=== PATIENT | male | born 1965 | race Caucasian/White ===

== ENCOUNTER 2016-08-13 21:13 | Emergency (ER) | payer MEDICARE, MEDICAID ==
[2016-08-13 22:10] VITALS: BP 116/78
== END 2016-08-14 06:15 | disposition left against medical advice (07) ==
LOC: ER 21:13
DX: Z53.21 Procedure and treatment not carried out due to patient leaving prior to being seen by health care provider (principal)

== ENCOUNTER 2016-08-30 22:37 | Emergency (ER) | payer MEDICARE, MEDICAID ==
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
[2016-08-31 05:40] VITALS: BP 120/86
== END 2016-08-31 05:25 | disposition home or self-care (01) ==
LOC: ER 22:37
DX: S09.90XA Unspecified injury of head, initial encounter (principal); S16.1XXA Strain of muscle, fascia and tendon at neck level, initial encounter; R51 Headache; M54.2 Cervicalgia; Y04.8XXA Assault by other bodily force, initial encounter; F10.10 Alcohol abuse, uncomplicated
CPT/HCPCS: 99284; 71101; 70450; 72125; L0120

== ENCOUNTER 2016-10-04 22:53 | Emergency (ER) | payer MEDICARE, MEDICAID | END 2016-10-04 23:30 | disposition left against medical advice (07) | LOC: ER 22:53 | DX: Z53.21 Procedure and treatment not carried out due to patient leaving prior to being seen by health care provider (principal) ==

== ENCOUNTER → 2016-10-22 | Outpatient (CLI) | payer MEDICARE, MEDICAID ==
[2016-10-22 14:31] LABS: ABSOLUTE BASOPHILS # (AUTO) 0.1 10^3/uL (0.0-0.2); ABSOLUTE EOSINOPHILS # (AUTO) 0.1 10^3/uL (0.0-0.6); ABSOLUTE LYMPHOCYTES (AUTO) 1.9 10^3/uL (0.5-4.7); ABSOLUTE MONOCYTES (AUTO) 1.3 10^3/uL (0.1-1.4); ABSOLUTE NEUT (AUTO) 7.6 10^3/uL (1.7-8.2); BASOPHILS % (AUTO) 0.7 % (0-2); EOSINOPHILS % (AUTO) 0.9 % (0-6); HEMATOCRIT 49.6 % (37.9-51.0); HEMOGLOBIN 16.4 g/dL (13.5-17.0); HGB HCT DIFFERENCE -0.4; LYMPHOCYTES % (AUTO) 17.1 % (13-45); MEAN CORPUSCULAR HEMOGLOBIN 30.9 pg (27.0-33.4); MEAN CORPUSCULAR HGB CONC 33.1 g/dL (32.0-36.0); MEAN CORPUSCULAR VOLUME 93 fl (80-97); MONOCYTES % (AUTO) 12.2 % (3-13); RED BLOOD COUNT 5.31 10^6/uL (4.35-5.55); RED CELL DISTRIBUTION WIDTH 13.3 % (11.5-14.0); SEGMENTED NEUTROPHILS % (AUTO) 69.1 % (42-78)
[2016-10-22 14:48] LABS: APPEARANCE,URINE SLIGHTLY-CLOUDY; BILIRUBIN,URINE SMALL (NEGATIVE); GLUCOSE, URINE NEGATIVE (NEGATIVE); KETONES,URINE 20 mg/dL (NEGATIVE); LEUKOCYTE ESTERASE,URINE NEGATIVE (NEGATIVE); NITRITE,URINE NEGATIVE (NEGATIVE); PROTEIN,URINE 30 mg/dL (NEGATIVE); URINE SPECIFIC GRAVITY 1.033
[2016-10-22 14:53] LABS: ALANINE AMINOTRANSFERASE 32 U/L (21-72); ALBUMIN 4.7 g/dL (3.5-5.0); ALKALINE PHOSPHATASE 87 U/L (38-126); AMYLASE 83 U/L (30-110); ANION GAP 13 (5-19); ASPARTATE AMINO TRANSFERASE 30 U/L (17-59); BILIRUBIN,DIRECT 0.4 mg/dL (0.0-0.4); BILIRUBIN,TOTAL 1.5 mg/dL (0.2-1.3); BLOOD UREA NITROGEN 23 mg/dL (7-20); CALCIUM 10.2 mg/dL (8.4-10.2); CARBON DIOXIDE 26 mmol/L (22-30); CHLORIDE 107 mmol/L (98-107); CHOLESTEROL 196.49 mg/dL (0-200); Direct HDL 103 mg/dL (>40); GLUCOSE 80 mg/dL (75-110); LIPASE 102.6 U/L (23-300); POTASSIUM 4.5 mmol/L (3.6-5.0); SODIUM 145.8 mmol/L (137-145); TRIGLYCERIDES 116 mg/dL (<150)
[2016-10-22 15:03] LABS: DIRECT LDL 49 mg/dL (<100)
== END ==
LOC: OD 13:13
PROVIDERS: ATTEND Internal Medicine
DX: E78.2 Mixed hyperlipidemia (principal); Z12.5 Encounter for screening for malignant neoplasm of prostate; R79.89 Other specified abnormal findings of blood chemistry; Z13.1 Encounter for screening for diabetes mellitus; R10.10 Upper abdominal pain, unspecified; Z13.29 Encounter for screening for other suspected endocrine disorder; Z79.899 Other long term (current) drug therapy
CPT/HCPCS: 36415; 82150; 83690; 84443; 85025; 80053; 81001; 80061; G0103

== ENCOUNTER → 2016-10-24 | Outpatient (CLI) | payer MEDICARE, MEDICAID ==
--- NOTE | 2016-10-24 12:32 | RADIOLOGY REPORT (SQ) ---
EXAM DESCRIPTION: U/S ABDOMEN COMPLETE W/O DOP COMPLETED DATE/TIME: 10/24/2016 10:36 am REASON FOR STUDY: UPPER ABDOMINAL PAIN R10.10 UPPER ABDOMINAL PAIN, UNSPECIFIED R10.0 ACUTE ABDOME N COMPARISON: None TECHNIQUE: Dynamic and static grayscale images acquired of the abdomen and recorded on PACS. Additio nal selected color Doppler and spectral images recorded. LIMITATIONS: Study limited due to acoustical interference from fat or from air in the bowel. FINDINGS: PANCREAS: Poorly seen secondary to acoustical interference from fat or from air in the bow el. No visualized masses. Duct normal caliber as seen. LIVER: No masses. No dilated ducts. LIVER VASCULATURE: Normal directional flow of the main portal vein and hepatic veins. GALLBLADDER: No stones. Normal wall thickness. No pericholecystic fluid. ULTRASOUND-DETECTED HIGUERA'S SIGN: Negative. INTRAHEPATIC DUCTS AND COMMON DUCT:CBD and intrahepatic ducts normal caliber. No filling defects. INFERIOR VENA CAVA: Normal flow. AORTA: No aneurysm. RIGHT KIDNEY: Normal size. Normal echogenicity. No solid or suspicious masses. No hydronephrosis. No calcifications. LEFT KIDNEY: Normal size. Normal echogenicity. No solid or suspicious masses. No hydronephrosis. No calcifications. SPLEEN:Normal size. No solid masses. PERITONEAL AND PLEURAL SPACES: No ascites or effusions. OTHER: No other significant finding. IMPRESSION: NO SIGNIFICANT FINDING IN THE VISUALIZED ABDOMEN. TECHNICAL DOCUMENTATION: JOB ID: [id number] [employer]- All Rights Reserved
== END ==
LOC: RAD 09:31
PROVIDERS: ATTEND Internal Medicine
DX: R10.10 Upper abdominal pain, unspecified (principal)
CPT/HCPCS: 76700

== ENCOUNTER 2016-12-11 02:06 | Emergency (ER) | payer MEDICARE, MEDICAID ==
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
[2016-12-11 07:56] VITALS: BP 110/78
== END 2016-12-11 07:45 | disposition home or self-care (01) ==
LOC: ER 02:06
DX: F10.229 Alcohol dependence with intoxication, unspecified (principal); E16.2 Hypoglycemia, unspecified; F17.200 Nicotine dependence, unspecified, uncomplicated; J44.9 Chronic obstructive pulmonary disease, unspecified; Z88.8 Allergy status to other drugs, medicaments and biological substances; Z88.0 Allergy status to penicillin
CPT/HCPCS: 82962; 99284

== ENCOUNTER 2016-12-18 19:33 | Emergency (ER) | payer MEDICARE, OTHER, MEDICAID ==
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
[2016-12-18 21:07] LABS: APPEARANCE,URINE CLEAR; BILIRUBIN,URINE NEGATIVE (NEGATIVE); GLUCOSE, URINE NEGATIVE (NEGATIVE); KETONES,URINE NEGATIVE (NEGATIVE); LEUKOCYTE ESTERASE,URINE NEGATIVE (NEGATIVE); NITRITE,URINE NEGATIVE (NEGATIVE); PROTEIN,URINE NEGATIVE (NEGATIVE); URINE SPECIFIC GRAVITY 1.008
[2016-12-18 21:17] LABS: ALANINE AMINOTRANSFERASE 37 U/L (21-72); ALBUMIN 5.1 g/dL (3.5-5.0); ALCOHOL 14 mg/dL (NONE DETECTED); ALKALINE PHOSPHATASE 89 U/L (38-126); ANION GAP 13 (5-19); ASPARTATE AMINO TRANSFERASE 44 U/L (17-59); BILIRUBIN,DIRECT 0.4 mg/dL (0.0-0.4); BLOOD UREA NITROGEN 12 mg/dL (7-20); CALCIUM 9.7 mg/dL (8.4-10.2); CARBON DIOXIDE 24 mmol/L (22-30); CHLORIDE 103 mmol/L (98-107); CREATININE RESULT 0.87 mg/dL (0.52-1.25); GLUCOSE 83 mg/dL (75-110); POTASSIUM 4.8 mmol/L (3.6-5.0); SODIUM 140.4 mmol/L (137-145); TOTAL PROTEIN 8.4 g/dL (6.3-8.2)
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
[2016-12-18 21:24] LABS: URINE BARBITURATES SCREEN NEGATIVE; URINE METHADONE SCREEN NEGATIVE; URINE OPIATES LOW NEGATIVE; URINE PHENCYCLIDINE SCREEN NEGATIVE
[2016-12-18 22:06] LABS: ABSOLUTE BASOPHILS # (AUTO) 0.1 10^3/uL (0.0-0.2); ABSOLUTE EOSINOPHILS # (AUTO) 0.1 10^3/uL (0.0-0.6); ABSOLUTE LYMPHOCYTES (AUTO) 1.9 10^3/uL (0.5-4.7); ABSOLUTE MONOCYTES (AUTO) 1.2 10^3/uL (0.1-1.4); ABSOLUTE NEUT (AUTO) 4.7 10^3/uL (1.7-8.2); EOSINOPHILS % (AUTO) 1.3 % (0-6); HEMATOCRIT 43.3 % (37.9-51.0); HEMOGLOBIN 14.6 g/dL (13.5-17.0); HGB HCT DIFFERENCE 0.5; LYMPHOCYTES % (AUTO) 23.9 % (13-45); MEAN CORPUSCULAR HEMOGLOBIN 31.3 pg (27.0-33.4); MEAN CORPUSCULAR HGB CONC 33.8 g/dL (32.0-36.0); MEAN CORPUSCULAR VOLUME 93 fl (80-97); MONOCYTES % (AUTO) 14.5 % (3-13); RED BLOOD COUNT 4.68 10^6/uL (4.35-5.55); RED CELL DISTRIBUTION WIDTH 13.3 % (11.5-14.0); SEGMENTED NEUTROPHILS % (AUTO) 59.3 % (42-78)
[2016-12-18] MEDS ORDERED: LORAZEPAM 1 MG TABLET PO ONE (22:18)
[2016-12-18 22:33] VITALS: BP 143/89
--- NOTE | 2016-12-19 12:07 | EKG REPORT ---
SEVERITY:- NORMAL ECG - SINUS RHYTHM : Confirmed by: Mallorie Funez MD 19-Dec-2016 12:06:12
== END 2016-12-18 22:32 | disposition home or self-care (01) ==
LOC: ER 19:33
DX: F10.239 Alcohol dependence with withdrawal, unspecified (principal); R11.2 Nausea with vomiting, unspecified; F17.200 Nicotine dependence, unspecified, uncomplicated
CPT/HCPCS: 93005; 99285; 36415; 80307 ×4; 85025; 80053; 81001; 93010; A9270

== ENCOUNTER 2016-12-23 17:43 | Emergency (ER) | payer MEDICARE, MEDICAID ==
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
[2016-12-23 18:38] LABS: ABSOLUTE BASOPHILS # (AUTO) 0.1 10^3/uL (0.0-0.2); ABSOLUTE EOSINOPHILS # (AUTO) 0.1 10^3/uL (0.0-0.6); ABSOLUTE LYMPHOCYTES (AUTO) 2.3 10^3/uL (0.5-4.7); ABSOLUTE MONOCYTES (AUTO) 1.3 10^3/uL (0.1-1.4); BASOPHILS % (AUTO) 1.2 % (0-2); EOSINOPHILS % (AUTO) 1.5 % (0-6); HEMATOCRIT 40.8 % (37.9-51.0); HEMOGLOBIN 14.1 g/dL (13.5-17.0); HGB HCT DIFFERENCE 1.5; LYMPHOCYTES % (AUTO) 23.6 % (13-45); MEAN CORPUSCULAR HEMOGLOBIN 31.5 pg (27.0-33.4); MEAN CORPUSCULAR HGB CONC 34.4 g/dL (32.0-36.0); MEAN CORPUSCULAR VOLUME 91 fl (80-97); MONOCYTES % (AUTO) 13.1 % (3-13); RED BLOOD COUNT 4.47 10^6/uL (4.35-5.55); SEGMENTED NEUTROPHILS % (AUTO) 60.6 % (42-78); WHITE BLOOD COUNT 9.9 10^3/uL (4.0-10.5)
[2016-12-23 18:56] LABS: ALANINE AMINOTRANSFERASE 36 U/L (21-72); ALBUMIN 4.1 g/dL (3.5-5.0); ALCOHOL 118 mg/dL (NONE DETECTED); ALKALINE PHOSPHATASE 80 U/L (38-126); ANION GAP 13 (5-19); ASPARTATE AMINO TRANSFERASE 33 U/L (17-59); BILIRUBIN,DIRECT 0.3 mg/dL (0.0-0.4); BILIRUBIN,TOTAL 0.5 mg/dL (0.2-1.3); BLOOD UREA NITROGEN 18 mg/dL (7-20); CALCIUM 9.2 mg/dL (8.4-10.2); CARBON DIOXIDE 23 mmol/L (22-30); CHLORIDE 104 mmol/L (98-107); CREATININE RESULT 0.76 mg/dL (0.52-1.25); GLUCOSE 79 mg/dL (75-110); LIPASE 122.5 U/L (23-300); POTASSIUM 4.4 mmol/L (3.6-5.0); SODIUM 140.1 mmol/L (137-145); TOTAL PROTEIN 6.9 g/dL (6.3-8.2)
[2016-12-23 19:03] LABS: APPEARANCE,URINE CLEAR; BILIRUBIN,URINE NEGATIVE (NEGATIVE); GLUCOSE, URINE NEGATIVE (NEGATIVE); KETONES,URINE NEGATIVE (NEGATIVE); LEUKOCYTE ESTERASE,URINE NEGATIVE (NEGATIVE); NITRITE,URINE NEGATIVE (NEGATIVE); PROTEIN,URINE NEGATIVE (NEGATIVE); URINE SPECIFIC GRAVITY 1.002; UROBILINOGEN,URINE NEGATIVE mg/dL (<2.0)
[2016-12-23 19:17] LABS: URINE BARBITURATES SCREEN NEGATIVE; URINE METHADONE SCREEN NEGATIVE; URINE OPIATES LOW NEGATIVE; URINE PHENCYCLIDINE SCREEN NEGATIVE
== END 2016-12-23 19:15 | disposition left against medical advice (07) ==
LOC: ER 17:43
DX: J44.9 Chronic obstructive pulmonary disease, unspecified (principal); R06.00 Dyspnea, unspecified; R10.13 Epigastric pain; F10.129 Alcohol abuse with intoxication, unspecified; Z88.8 Allergy status to other drugs, medicaments and biological substances; Z88.0 Allergy status to penicillin; Z53.20 Procedure and treatment not carried out because of patient's decision for unspecified reasons
CPT/HCPCS: 36415; 80053; 80307; 81001; 83690; 84484; 85025; 99281

== ENCOUNTER 2017-04-19 02:41 | Emergency (ER) | payer MEDICARE, MEDICAID ==
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
[2017-04-19 04:24] LABS: ABSOLUTE BASOPHILS # (AUTO) 0.1 10^3/uL (0.0-0.2); ABSOLUTE EOSINOPHILS # (AUTO) 0.2 10^3/uL (0.0-0.6); ABSOLUTE LYMPHOCYTES (AUTO) 1.7 10^3/uL (0.5-4.7); ABSOLUTE MONOCYTES (AUTO) 0.9 10^3/uL (0.1-1.4); ABSOLUTE NEUT (AUTO) 5.3 10^3/uL (1.7-8.2); HEMATOCRIT 44.6 % (37.9-51.0); HEMOGLOBIN 15.3 g/dL (13.5-17.0); HGB HCT DIFFERENCE 1.3; LYMPHOCYTES % (AUTO) 21.3 % (13-45); MEAN CORPUSCULAR HEMOGLOBIN 31.3 pg (27.0-33.4); MEAN CORPUSCULAR HGB CONC 34.3 g/dL (32.0-36.0); MEAN CORPUSCULAR VOLUME 92 fl (80-97); MONOCYTES % (AUTO) 11.3 % (3-13); RED BLOOD COUNT 4.87 10^6/uL (4.35-5.55); SEGMENTED NEUTROPHILS % (AUTO) 64.4 % (42-78); WHITE BLOOD COUNT 8.2 10^3/uL (4.0-10.5)
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
[2017-04-19 04:43] LABS: ALANINE AMINOTRANSFERASE 58 U/L (21-72); ALBUMIN 4.3 g/dL (3.5-5.0); ALKALINE PHOSPHATASE 89 U/L (38-126); ANION GAP 14 (5-19); ASPARTATE AMINO TRANSFERASE 55 U/L (17-59); BILIRUBIN,DIRECT 0.3 mg/dL (0.0-0.4); BILIRUBIN,TOTAL 0.7 mg/dL (0.2-1.3); BLOOD UREA NITROGEN 20 mg/dL (7-20); CALCIUM 9.1 mg/dL (8.4-10.2); CARBON DIOXIDE 26 mmol/L (22-30); CHLORIDE 106 mmol/L (98-107); CREATININE RESULT 0.95 mg/dL (0.52-1.25); GLUCOSE 84 mg/dL (75-110); POTASSIUM 4.9 mmol/L (3.6-5.0); SODIUM 145.8 mmol/L (137-145); TOTAL PROTEIN 6.8 g/dL (6.3-8.2)
--- NOTE | 2017-04-19 05:36 | RADIOLOGY REPORT (SQ) ---
EXAM DESCRIPTION: WRIST RIGHT 3 VIEWS COMPLETED DATE/TIME: 04/19/2017 5:25 am REASON FOR STUDY: right wrist swelling COMPARISON: None. NUMBER OF VIEWS: Three views. TECHNIQUE: AP, lateral, and oblique radiographic images acquired of the right wrist. LIMITATIONS: None. FINDINGS: MINERALIZATION: Normal. BONES: No acute fracture or dislocation. No worrisome bone lesions. Normal alignment. Mild deformi ty of the 5th metacarpus consistent with old injury. SOFT TISSUES: No soft tissue swelling. No foreign body. OTHER: No other significant finding. IMPRESSION: NO RADIOGRAPHIC EVIDENCE OF ACUTE INJURY. TECHNICAL DOCUMENTATION: JOB ID: [id number] [email or web address]- All Rights Reserved
--- NOTE | 2017-04-19 05:37 | RADIOLOGY REPORT (SQ) ---
EXAM DESCRIPTION: FOREARM RIGHT COMPLETED DATE/TIME: 04/19/2017 5:25 am REASON FOR STUDY: distal forearm swelling COMPARISON: 01/09/2013. NUMBER OF VIEWS: Two views. 3 images. TECHNIQUE: Two radiographic images acquired of the right forearm, including elbow and wrist in at le ast one projection. LIMITATIONS: None. FINDINGS: MINERALIZATION: Normal. BONES: No acute fracture. No worrisome bone lesions. SOFT TISSUES: Swelling. OTHER: No other significant finding. IMPRESSION: No acute bone or joint defect. Swelling. TECHNICAL DOCUMENTATION: JOB ID: [id number] [employer]- All Rights Reserved
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
[2017-04-19 07:56] VITALS: BP 136/95
== END 2017-04-19 07:55 | disposition home or self-care (01) ==
LOC: ER 02:41
DX: S02.2XXA Fracture of nasal bones, initial encounter for closed fracture (principal); S00.83XA Contusion of other part of head, initial encounter; I10 Essential (primary) hypertension; Y04.0XXA Assault by unarmed brawl or fight, initial encounter; Y92.007 Garden or yard of unspecified non-institutional (private) residence as the place of occurrence of the external cause; Z79.899 Other long term (current) drug therapy; F17.200 Nicotine dependence, unspecified, uncomplicated
CPT/HCPCS: 36415; 70486; 71260; 72125; 80053; 85025; 99285

== ENCOUNTER → 2017-11-04 | Outpatient (CLI) | payer MEDICARE, MEDICAID ==
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
== END ==
LOC: RAD 11:28
PROVIDERS: ATTEND Internal Medicine
DX: M54.40 Lumbago with sciatica, unspecified side (principal)
CPT/HCPCS: 72110

== ENCOUNTER → 2018-02-26 | Outpatient (CLI) | payer MEDICARE, MEDICAID ==
[2018-02-26 11:02] LABS: ABSOLUTE BASOPHILS # (AUTO) 0.1 10^3/uL (0.0-0.2); ABSOLUTE EOSINOPHILS # (AUTO) 0.1 10^3/uL (0.0-0.6); ABSOLUTE LYMPHOCYTES (AUTO) 1.6 10^3/uL (0.5-4.7); ABSOLUTE MONOCYTES (AUTO) 1.1 10^3/uL (0.1-1.4); ABSOLUTE NEUT (AUTO) 4.9 10^3/uL (1.7-8.2); BASOPHILS % (AUTO) 0.7 % (0-2); EOSINOPHILS % (AUTO) 1.6 % (0-6); HEMATOCRIT 46.1 % (37.9-51.0); HEMOGLOBIN 15.9 g/dL (13.5-17.0); LYMPHOCYTES % (AUTO) 20.8 % (13-45); MEAN CORPUSCULAR HEMOGLOBIN 31.8 pg (27.0-33.4); MEAN CORPUSCULAR HGB CONC 34.5 g/dL (32.0-36.0); MEAN CORPUSCULAR VOLUME 92 fl (80-97); MONOCYTES % (AUTO) 13.8 % (3-13); PLATELET COUNT 213 10^3/uL (150-450); RED CELL DISTRIBUTION WIDTH 13.5 % (11.5-14.0); SEGMENTED NEUTROPHILS % (AUTO) 63.1 % (42-78); TOTAL CELLS COUNTED % (AUTO) 100 %; WHITE BLOOD COUNT 7.7 10^3/uL (4.0-10.5)
[2018-02-26 11:17] LABS: CHOLESTEROL 160.12 mg/dL (0-200); TRIGLYCERIDES 106 mg/dL (<150)
[2018-02-26 11:21] LABS: ALANINE AMINOTRANSFERASE 41 U/L (21-72); ALKALINE PHOSPHATASE 70 U/L (38-126); ANION GAP 7 (5-19); ASPARTATE AMINO TRANSFERASE 33 U/L (17-59); BILIRUBIN,DIRECT 0.4 mg/dL (0.0-0.4); BILIRUBIN,TOTAL 1.4 mg/dL (0.2-1.3); BLOOD UREA NITROGEN 18 mg/dL (7-20); CALCIUM 9.6 mg/dL (8.4-10.2); CARBON DIOXIDE 31 mmol/L (22-30); CHLORIDE 102 mmol/L (98-107); GLUCOSE 97 mg/dL (75-110); POTASSIUM 5.5 mmol/L (3.6-5.0); SODIUM 139.6 mmol/L (137-145)
[2018-02-26 11:41] LABS: DIRECT LDL < 30 mg/dL (<100)
[2018-02-26 11:42] LABS: FREE T4 (FREE THYROXINE) 1.19 ng/dL (0.78-2.19)
[2018-02-26 11:56] LABS: THYROID STIMULATING HORMONE 1.81 uIU/mL (0.47-4.68)
[2018-02-28 06:57] LABS: PROSTATE SPECIFIC ANTIGEN 0.9 ng/mL (0.0-4.0); PSA % FREE 6.7 % (.); PSA FREE 0.06 ng/mL
== END ==
LOC: OD 10:02
PROVIDERS: ATTEND Internal Medicine
DX: E78.2 Mixed hyperlipidemia (principal); E66.3 Overweight; E55.9 Vitamin D deficiency, unspecified; Z13.29 Encounter for screening for other suspected endocrine disorder; I10 Essential (primary) hypertension; Z12.5 Encounter for screening for malignant neoplasm of prostate
CPT/HCPCS: 36415; 80053; 80061; 82306; 84154; 84439; 84443; 85025

== ENCOUNTER 2018-06-12 23:08 | Emergency (ER) | payer MEDICARE, MEDICAID ==
[2018-06-12 23:27] VITALS: BP 116/83
== END 2018-06-13 00:50 | disposition left against medical advice (07) ==
LOC: ER 23:08
DX: Z53.21 Procedure and treatment not carried out due to patient leaving prior to being seen by health care provider (principal)

== ENCOUNTER 2018-12-16 05:20 | Emergency (ER) | payer MEDICARE, MEDICAID ==
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
[2018-12-16] MEDS ORDERED: LEVOFLOXACIN 750 MG TABLET PO ONE (07:33)
[2018-12-16] MEDS ORDERED: IPRATROPIUM/ALBUTEROL 0.5-2.5 MG/3 ML AMPUL NEB ONE (07:33)
[2018-12-16] MEDS ORDERED: PREDNISONE 20 MG TABLET PO ONE (07:33)
[2018-12-16 08:22] VITALS: BP 122/80
== END 2018-12-16 08:05 | disposition home or self-care (01) ==
LOC: ER 05:20
DX: J18.1 Lobar pneumonia, unspecified organism (principal); F10.10 Alcohol abuse, uncomplicated; M54.6 Pain in thoracic spine; F17.200 Nicotine dependence, unspecified, uncomplicated; J44.9 Chronic obstructive pulmonary disease, unspecified; I10 Essential (primary) hypertension; Z88.0 Allergy status to penicillin
CPT/HCPCS: 94640; 99284; 71046; A9270 ×3; J7512; J7620

== ENCOUNTER → 2019-03-21 | Outpatient (CLI) | payer MEDICARE, MEDICAID ==
--- NOTE | 2019-03-21 12:59 | RADIOLOGY REPORT (SQ) ---
EXAM DESCRIPTION: LUMBAR SPINE COMPLETE COMPLETED DATE/TIME: 03/21/2019 12:27 pm REASON FOR STUDY: LUMBAGO WITH SCIATICA M54.40 LUMBAGO WITH SCIATICA, UNSPECIFIED SIDE COMPARISON: None. NUMBER OF VIEWS: Five views including obliques. TECHNIQUE: AP, lateral, oblique, and sacral radiographic images acquired of the lumbar spine. LIMITATIONS: None. FINDINGS: MINERALIZATION: Normal. SEGMENTATION: Normal. No transitional anatomy. ALIGNMENT: Mild scoliosis. VERTEBRAE: Maintained height. No fracture or worrisome bone lesion. DISCS: The L5-S1 disc space is narrowed. POSTERIOR ELEMENTS: Pedicles and facets are intact. No pars defect or posterior arch defects. HARDWARE: None in the spine. PARASPINAL SOFT TISSUES: Normal. PELVIS: Intact as visualized. No fractures or worrisome bone lesions. SI joints intact. OTHER: No other significant finding. IMPRESSION: Mild scoliosis. Degenerative disc changes. TECHNICAL DOCUMENTATION: JOB ID: [id number] 1024 [employer]- All Rights Reserved Reading location - IP/workstation name: [email or web address]
== END ==
LOC: OD 11:55
PROVIDERS: ATTEND Internal Medicine
DX: M54.40 Lumbago with sciatica, unspecified side (principal)
CPT/HCPCS: 72110

== ENCOUNTER 2019-04-06 20:46 | Emergency (ER) | payer MEDICARE, MEDICAID ==
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
[2019-04-06 21:40] LABS: APPEARANCE,URINE CLEAR; BILIRUBIN,URINE NEGATIVE (NEGATIVE); COLOR,URINE STRAW; GLUCOSE, URINE NEGATIVE (NEGATIVE); KETONES,URINE NEGATIVE (NEGATIVE); LEUKOCYTE ESTERASE,URINE NEGATIVE (NEGATIVE); NITRITE,URINE NEGATIVE (NEGATIVE); PROTEIN,URINE NEGATIVE (NEGATIVE); URINE SPECIFIC GRAVITY 1.002; UROBILINOGEN,URINE NEGATIVE mg/dL (<2.0)
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
[2019-04-06 21:52] LABS: URINE AMPHETAMINES SCREEN NEGATIVE; URINE BARBITURATES SCREEN NEGATIVE; URINE BENZODIAZEPINES SCREEN NEGATIVE; URINE COCAINE SCREEN NEGATIVE; URINE MARIJUANA (THC) SCREEN NEGATIVE; URINE METHADONE SCREEN NEGATIVE; URINE PHENCYCLIDINE SCREEN NEGATIVE
[2019-04-06 22:21] LABS: ABSOLUTE BASOPHILS # (AUTO) 0.1 10^3/uL (0.0-0.2); ABSOLUTE EOSINOPHILS # (AUTO) 0.3 10^3/uL (0.0-0.6); ABSOLUTE LYMPHOCYTES (AUTO) 1.8 10^3/uL (0.5-4.7); ABSOLUTE MONOCYTES (AUTO) 1.1 10^3/uL (0.1-1.4); ABSOLUTE NEUT (AUTO) 4.6 10^3/uL (1.7-8.2); BASOPHILS % (AUTO) 0.7 % (0-2); EOSINOPHILS % (AUTO) 3.8 % (0-6); HEMATOCRIT 48.9 % (37.9-51.0); LYMPHOCYTES % (AUTO) 23.4 % (13-45); MEAN CORPUSCULAR HEMOGLOBIN 31.6 pg (27.0-33.4); MEAN CORPUSCULAR HGB CONC 34.7 g/dL (32.0-36.0); MEAN CORPUSCULAR VOLUME 91 fl (80-97); MONOCYTES % (AUTO) 13.7 % (3-13); PLATELET COUNT 209 10^3/uL (150-450); RED BLOOD COUNT 5.37 10^6/uL (4.35-5.55); RED CELL DISTRIBUTION WIDTH 13.8 % (11.5-14.0); SEGMENTED NEUTROPHILS % (AUTO) 58.4 % (42-78); TOTAL CELLS COUNTED % (AUTO) 100 %; WHITE BLOOD COUNT 7.8 10^3/uL (4.0-10.5)
[2019-04-06 22:33] LABS: INTERNATIONAL RATION (INR) 0.93; PROTHROMBIN TIME 12.5 SEC (11.4-15.4)
[2019-04-06 22:43] LABS: ALBUMIN 4.9 g/dL (3.5-5.0); ALCOHOL 141 mg/dL (NONE DETECTED); ALKALINE PHOSPHATASE 80 U/L (38-126); ANION GAP 15 (5-19); ASPARTATE AMINO TRANSFERASE 43 U/L (17-59); BILIRUBIN,DIRECT 0.2 mg/dL (0.0-0.4); BILIRUBIN,TOTAL 0.9 mg/dL (0.2-1.3); BLOOD UREA NITROGEN 9 mg/dL (7-20); CALCIUM 9.8 mg/dL (8.4-10.2); CARBON DIOXIDE 26 mmol/L (22-30); CHLORIDE 96 mmol/L (98-107); GLUCOSE 75 mg/dL (75-110); POTASSIUM 4.4 mmol/L (3.6-5.0); TOTAL PROTEIN 8.2 g/dL (6.3-8.2)
[2019-04-06 22:44] LABS: ACETAMINOPHEN < 10 ug/mL (10-30); SALICYLATE < 1.0 mg/dL (2.0-20.0)
--- NOTE | 2019-04-06 23:29 | EKG REPORT ---
SEVERITY:- BORDERLINE ECG - SINUS RHYTHM ABERRANT COMPLEX, POSSIBLY SUPRAVENTRICULAR CONSIDER ANTERIOR INFARCT : Confirmed by: Mallorie Funez MD 06-Apr-2019 23:28:33
[2019-04-07] MEDS ORDERED: HALOPERIDOL LACTATE INJ 5 MG/1 ML VIAL ONE (05:24)
[2019-04-07] MEDS ORDERED: ZIPRASIDONE MESYLATE INJ/PF 20 MG SDV IM ONE (05:26)
[2019-04-07] MEDS ORDERED: LEVALBUTEROL HCL NEB 1.25 MG/3 ML AMPUL NEB ONE (05:44)
--- NOTE | 2019-04-07 11:47 | ER Document Report ---
Doctor's Note Notes: 04/07/19 11:47 53-year-old male with a history of alcoholism, bipolar disorder, medication noncompliance, TBI, COPD and is a current everyday smoker presents to the emergency room for suicidal ideation yesterday. Patient's vital signs and previous labs, diagnostic images reviewed. Reviewed mental health notes, nurse's notes and previous providers notes. VSS. Pt is in no distress at this time. Denies any SI or HI. Patient's serum EtOH was elevated at 141, has not been rechecked today however patient has remained on IVC paperwork and has been evaluated by mental health, who feel that patient is appropriate for discharge. Patient does have family members at bedside, he will be discharged into their care as well as having mental health appointments outpatient. General: A&Ox3. Answers questions appropriately. Heart: RRR Lungs: CTAB Psych: Flat affect A/P: Patient was evaluated by this provider as well as supervising physician, Dr. Carpenter, supervising emergency room provider as well as the mental health team. Patient is not under the influence of any intoxication, he would like to leave the emergency room. denies any homicidal suicidal ideation. This provider feels that patient is appropriate for discharge under the recommendations of the mental health team, will be following up outpatient for f ther mental health evaluation. Patient is appropriate for discharge home.
--- NOTE | 2019-04-07 11:59 | PSYCHOLOGICAL NOTE ---
Psych Note - Psych Note Date seen by psych provider: 04/07/19 Time seen by psych provider: 08:00 Psych Note: Reason for consult: History of alcohol use/abuse Completed chart review. Patient presented to ED via EMS. Patient has an extensive history of alcohol use/misuse. Patient reports to have consumed 4 big boys [beer]. Patient denies suicidal and homicidal ideations. Patient states he never endorsed suicidal ideations. Patient states I dont want to do nothing. Patient is irritable but easily redirectable. Patient was reminded that he has had frequent visits to the ED due to alcohol abuse. Patient was informed that he has to be cleared by the Doc before he can be discharged. Patient expressed frustration that he had not been seen by the Doc yet, patient was reminded that he was highly intoxicated when he initially presented to the ED and doesnt remember seeing the Doc. Patient was informed he could not be discharged until cleared by the medical and behavioral team. Patient refuses substance abuse treatment. Patient is alert and oriented to person, place, time and circumstance. Mood irritable. Patient denies suicidal and homicidal ideation. There is no observed behavior that suggests patient is responding to internal stimuli. Eye contact is good. Conversational speech is x. Intellectual ability appears to be below average range. Attention and concentration are poor. Insight, judgment, and impulse control are poor. DSM Diagnosis: Alcohol Use Disorder Medication recommendations per [facility] contracted psychiatrist Dr. Nathan SOTO is as follows: NONE Impression/Plan: Patient is cleared from acute psychiatric services. Patient does not meet IVC criteria per [place] GS 122C. Patient denies suicidal and homicidal ideations. Patient denies auditory and visual hallucinations. Patient has an extensive history with alcohol abuse/misuse. Patient declines mental health services. Dr. Del Real was consulted on the care and management of this patient; attending physician is in agreement with recommendations and disposition.
[2019-04-07] MEDS ORDERED: IPRATROPIUM/ALBUTEROL 0.5-2.5 MG/3 ML AMPUL NEB ONE (12:07)
[2019-04-07 12:36] VITALS: BP 127/85
== END 2019-04-07 12:37 | disposition home or self-care (01) ==
LOC: ER 20:46
DX: F31.30 Bipolar disorder, current episode depressed, mild or moderate severity, unspecified (principal); F10.229 Alcohol dependence with intoxication, unspecified; I10 Essential (primary) hypertension; J44.9 Chronic obstructive pulmonary disease, unspecified
CPT/HCPCS: 36415; 80053; 80164; 80307; 81001; 85025; 85610; 93005; 93010; J3486; J3490; J7620

== ENCOUNTER 2019-04-15 11:30 | Emergency (ER) | payer MEDICARE, MEDICAID ==
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
[2019-04-15 12:30] LABS: VENOUS BLOOD BASE EXCESS -0.2 mmol/L; VENOUS BLOOD HCO3 24.7 mmol/L (20-32); VENOUS BLOOD PCO2 41.2 mmHg (35-63); VENOUS BLOOD PH 7.4 (7.30-7.42)
[2019-04-15 12:34] LABS: HEMATOCRIT 50.1 % (37.9-51.0); HEMOGLOBIN 17.3 g/dL (13.5-17.0); MEAN CORPUSCULAR HEMOGLOBIN 31.5 pg (27.0-33.4); MEAN CORPUSCULAR HGB CONC 34.4 g/dL (32.0-36.0); MEAN CORPUSCULAR VOLUME 92 fl (80-97); PLATELET COUNT 280 10^3/uL (150-450); RED BLOOD COUNT 5.47 10^6/uL (4.35-5.55); RED CELL DISTRIBUTION WIDTH 14.2 % (11.5-14.0); WHITE BLOOD COUNT 23.4 10^3/uL (4.0-10.5)
[2019-04-15] MEDS ORDERED: METHYLPREDNISOLONE INJ 125 MG/2 ML SDV IV ONE (12:34)
[2019-04-15] MEDS ORDERED: IPRATROPIUM/ALBUTEROL 0.5-2.5 MG/3 ML AMPUL NEB ONE (12:34)
[2019-04-15] MEDS ORDERED: ALBUTEROL SULFATE 0.083% NEB 2.5 MG/3 ML AMPUL NEB ONE (12:34)
--- NOTE | 2019-04-15 12:35 | RADIOLOGY REPORT (SQ) ---
EXAM DESCRIPTION: CHEST 2 VIEWS COMPLETED DATE/TIME: 04/15/2019 12:22 pm REASON FOR STUDY: short of breath COMPARISON: None. EXAM PARAMETERS: NUMBER OF VIEWS: two views TECHNIQUE: Digital Frontal and Lateral radiographic views of the chest acquired. RADIATION DOSE: NA LIMITATIONS: none FINDINGS: LUNGS AND PLEURA: There are findings of COPD including flattening of the hemidiaphragms an d increased AP diameter of the thorax on the lateral view. There are acute patchy opacities in the r ight middle lobe. There is no associated pleural effusion or pneumothorax. MEDIASTINUM AND HILAR STRUCTURES: There is a round metallic object that projects within the mediastin um, unchanged. HEART AND VASCULAR STRUCTURES: Stable cardiac silhouette. BONES: No acute findings. HARDWARE: Status post median sternotomy. OTHER: No other finding. IMPRESSION: Acute patchy right middle lobe opacities. Correlate clinically to exclude an infection. TECHNICAL DOCUMENTATION: JOB ID: [id number] [employer]- All Rights Reserved Reading location - IP/workstation name: [email or web address]
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
[2019-04-15 12:43] LABS: APPEARANCE,URINE SLIGHTLY-CLOUDY; BILIRUBIN,URINE NEGATIVE (NEGATIVE); COLOR,URINE YELLOW; GLUCOSE, URINE NEGATIVE (NEGATIVE); KETONES,URINE TRACE mg/dL (NEGATIVE); PROTEIN,URINE 30 mg/dL (NEGATIVE); URINE SPECIFIC GRAVITY 1.016
[2019-04-15 12:52] LABS: ALBUMIN 4.8 g/dL (3.5-5.0); ALKALINE PHOSPHATASE 105 U/L (38-126); ANION GAP 14 (5-19); ASPARTATE AMINO TRANSFERASE 37 U/L (17-59); BILIRUBIN,DIRECT 0.2 mg/dL (0.0-0.4); BILIRUBIN,TOTAL 1.4 mg/dL (0.2-1.3); BLOOD UREA NITROGEN 10 mg/dL (7-20); CALCIUM 9.8 mg/dL (8.4-10.2); CARBON DIOXIDE 25 mmol/L (22-30); CHLORIDE 102 mmol/L (98-107); GLUCOSE 122 mg/dL (75-110); POTASSIUM 4.6 mmol/L (3.6-5.0); TOTAL PROTEIN 8.2 g/dL (6.3-8.2)
[2019-04-15] MEDS ORDERED: NORMAL SALINE 1000 ML 1,000 ML IV ONE (12:54)
[2019-04-15 13:07] LABS: ABSOLUTE LYMPHOCYTES# (MANUAL) 0.7 10^3/uL (0.5-4.7); ABSOLUTE MONOCYTES # (MANUAL) 1.9 10^3/uL (0.1-1.4); BASOPHILS % (MANUAL) 1 % (0-2); EOSINOPHILS % (MANUAL) 0 % (0-6); LYMPHOCYTES % (MANUAL) 3 % (13-45); MONOCYTES % (MANUAL) 8 % (3-13); SEGMENTED NEUTROPHILS % (MAN) 88 % (42-78); TOTAL CELLS COUNTED 100; TOXIC VACUOLATION PRESENT
[2019-04-15 13:13] LABS: ANISOCYTOSIS SLIGHT
[2019-04-15 13:14] LABS: PLATELET COMMENT ADEQUATE
[2019-04-15] MEDS ORDERED: CEFTRIAXONE 1 GM/D5W RTU 50 ML IV ONE (13:57)
[2019-04-15] MEDS ORDERED: LEVOFLOXACIN 750 MG/D5W RTU 750 MG/150 ML RTUPB IV ONE (14:38)
--- NOTE | 2019-04-15 14:58 | EKG REPORT ---
SEVERITY:- ABNORMAL ECG - SINUS TACHYCARDIA INCOMPLETE RIGHT BUNDLE BRANCH BLOCK INFERIOR INFARCT, AGE INDETERMINATE : Confirmed by: Robin Schroeder MD 15-Apr-2019 14:57:59
[2019-04-15 18:48] VITALS: BP 127/94
== END 2019-04-15 18:50 | disposition home or self-care (01) ==
LOC: ER 11:30
DX: J44.0 Chronic obstructive pulmonary disease with (acute) lower respiratory infection (principal); J18.9 Pneumonia, unspecified organism; J44.1 Chronic obstructive pulmonary disease with (acute) exacerbation; R06.02 Shortness of breath; R05 Cough; F17.200 Nicotine dependence, unspecified, uncomplicated; I10 Essential (primary) hypertension; Z88.8 Allergy status to other drugs, medicaments and biological substances; Z88.0 Allergy status to penicillin
CPT/HCPCS: 93005; 94640; 99285; 96361; 96375; 96365; 36415; 87040; 83605; 83690; 85025; 80053; 81001; 84484; 82803; 83880; 71046; 93010; J2930; J7030; J1956; A9270 ×2; J7620

== ENCOUNTER 2019-06-23 03:25 | Emergency (ER) | payer MEDICARE, MEDICAID ==
[2019-06-23] MEDS ORDERED: PREDNISONE 20 MG TABLET PO ONE (03:42)
[2019-06-23] MEDS ORDERED: IPRATROPIUM/ALBUTEROL 0.5-2.5 MG/3 ML AMPUL NEB ONE (03:42)
[2019-06-23] MEDS ORDERED: ALBUTEROL SULFATE 0.083% NEB 2.5 MG/3 ML AMPUL NEB SCH (03:57)
--- NOTE | 2019-06-23 04:55 | RADIOLOGY REPORT (SQ) ---
EXAM DESCRIPTION: XR CHEST 2 VIEWS COMPLETED DATE/TME: 06/23/2019 03:42 CLINICAL HISTORY: 53 years, Male, sob COMPARISON: April 15, 2019 NUMBER OF VIEWS: 2 TECHNIQUE: LIMITATIONS: None. FINDINGS: Cardiomediastinal silhouette is prominent with postsurgical change. Chronic parenchymal lung change. Streaky airspace disease, bilaterally. Aeration however is improved when compared to prior. No free pleural fluid. No pneumothorax. Laxity in the shoulders IMPRESSION: Chronic change. No adverse change copyright 2010 [employer]- All Rights Reserved
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
[2019-06-23 05:20] VITALS: BP 115/93
--- NOTE | 2019-06-23 09:15 | EKG REPORT ---
SEVERITY:- BORDERLINE ECG - SINUS RHYTHM LOW VOLTAGE THROUGHOUT : Confirmed by: Leonel Tucker 23-Jun-2019 09:13:49
== END 2019-06-23 05:21 | disposition left against medical advice (07) ==
LOC: ER 03:25
DX: J44.9 Chronic obstructive pulmonary disease, unspecified (principal); F17.200 Nicotine dependence, unspecified, uncomplicated; Z72.89 Other problems related to lifestyle; I10 Essential (primary) hypertension; Z88.0 Allergy status to penicillin
CPT/HCPCS: 93005; 71046; 93010; A9270 ×2; 94640; 99285; J7512; J7620

== ENCOUNTER 2019-10-25 21:35 | Emergency (ER) | payer MEDICARE, MEDICAID ==
[2019-10-25 21:57] VITALS: BP 120/81
== END 2019-10-25 22:17 | disposition left against medical advice (07) ==
LOC: ER 21:35
DX: Z53.21 Procedure and treatment not carried out due to patient leaving prior to being seen by health care provider (principal)